=== PATIENT | female | born 1960 | race Hispanic/Latino ===

== ENCOUNTER 2018-03-19 11:57 | Emergency (ER) | payer OTHER, SELFPAY ==
--- NOTE | 2018-03-19 13:38 | RAD ---
FOUR VIEWS OF THE LEFT KNEE: INDICATION: A 58-year-old female with left knee pain for 6 weeks after feeling a pop in the left knee. COMPARISON: None. FINDINGS: There are small marginal osteophytes affecting all major compartments of the left knee, but most rosalina rely the patellofemoral compartments. There are subchondral cyst-like abnormalities involving the pa tella. There is a flabella seen within the posterolateral aspect of the knee joint. There is a smal l suspected intraarticular body seen within the posterior aspect of the knee joint measuring 8 mm. T here is mild joint capsular distention. The periarticular soft tissues are normal-appearing. IMPRESSION: 1. Mild osteoarthrosis of the left knee. 2. No acute fracture or subluxation. 3. Small intraarticular body within the posterior aspect of the knee joint. POS: [facility]
[2018-03-19] MEDS ORDERED: Ketorolac Tromethamine 60 MG/2 ML VIAL ONE (13:47)
[2018-03-19] MEDS ORDERED: Cyclobenzaprine 10 MG TAB ONE (13:47)
== END 2018-03-19 14:01 | disposition home or self-care (01) ==
LOC: ERS 11:57
DX: M25.562 Pain in left knee (principal); M54.5 Low back pain
CPT/HCPCS: J1885

== ENCOUNTER 2019-06-04 13:18 | Outpatient (CLI) | payer OTHER ==
--- NOTE | 2019-06-04 13:59 | BD ---
EXAM: Bone densitometry using DEXA HISTORY: 59 yo female. Screening for postmenopausal osteoporosis FINDINGS: L1--bone mineral density 0.973 g/sq cm; T score -0.2 ; Z score 1.0 L2--bone mineral density 1.019 g/sq cm; T score -0.1 ; Z score 1.3 L3--bone mineral density 1.049 g/sq cm; T score -0.3 ; Z score 1.1 L4--bone mineral density 1.127 g/sq cm; T score 0.6 ; Z score 2.0 Total L1-L4--bone mineral density 1.0, 0.9 g/sq cm; T score 0.0 ; Z score 1.4 Left femoral neck--bone mineral density0.878; T score 0.3 ; Z score 1.3 Total proximal left femur--bone mineral density 1.063; T score 1.0 ; Z score 1.7 IMPRESSION: Normal BMD
--- NOTE | 2019-06-09 12:40 | MMO ---
Bilateral MAMMO Bilat Screen [facility]. CLINICAL HISTORY: Patient is 59 years old and is seen for screening. The patient has no family history of breast cancer. The patient has no personal history of cancer. VIEWS: The views performed were: bilateral craniocaudal with tomosynthesis; bilateral mediolateral oblique with tomosynthesis; and left exaggerated craniocaudal. FILMS COMPARED: The present examination has been compared to prior imaging studies performed at This study has been interpreted with the assistance of computer-aided detection. MAMMOGRAM FINDINGS: There are scattered fibroglandular densities. There are stable benign appearing calcifications seen in both breasts. There are no suspicious masses, suspicious calcifications, or new areas of architectural distortion. IMPRESSION: THERE IS NO MAMMOGRAPHIC EVIDENCE OF MALIGNANCY. A ROUTINE FOLLOW-UP MAMMOGRAM IN 1 YEAR IS RECOMMENDED. THE RESULTS OF THIS EXAM WERE SENT TO THE PATIENT. ACR BI-RADS Category 2 - Benign finding MAMMOGRAPHY NOTE: 1. A negative mammogram report should not delay a biopsy if a dominant of clinically suspicious mass is present. 2. Approximately 10% to 15% of breast cancers are not detected by mammography. 3. Adenosis and dense breasts may obscure an underlying neoplasm. Reported by: DIANA CONWAY MD Electonically Signed: [id number]
== END 2019-06-04 13:19 | disposition home or self-care (01) ==
LOC: BICMAMMO 13:18
PROVIDERS: ATTEND Family Medicine
DX: Z12.31 Encounter for screening mammogram for malignant neoplasm of breast (principal); Z13.820 Encounter for screening for osteoporosis
CPT/HCPCS: 77063; 77067; 77080